=== PATIENT | male | born 2000 | race African-American/Black ===

== ENCOUNTER 2018-10-30 18:45 | Emergency (ER) | payer SELFPAY ==
[~2018-10-30] VITALS: Ht 165.1 cm; Wt 76.2 kg
[2018-10-30 19:44] VITALS: BP 135/69
[2018-10-30] MEDS ORDERED: KETOROLAC 30 MG/ML VIAL. IM ONE (20:45)
--- NOTE | 2018-10-30 21:03 | RAD ---
EXAM: Right hand, 3 views. HISTORY: Pain. COMPARISON: None. FINDINGS: 3 views the right hand are obtained. There is no fracture, dislocation or subluxation. IMPRESSION: No acute osseous finding. Electronically signed by: Mae Agustin MD (10/30/2018 9:00 PM) [facility]
--- NOTE | 2018-10-30 21:07 | PHYS DOC ---
Past Medical History Past Medical History: Asthma Additional Past Medical Histor: RIGHT ANKLE FX x 2 Past Surgical History: Other Additional Past Surgical Histo: ADENIODECTOMY Additional Information: non smoker Alcohol Use: None Drug Use: None Adult General Chief Complaint Chief Complaint: WRIST PAIN HPI HPI She is a 17-year-old male who presents the ER with right thumb pain that has been ongoing for a month. He has tried wrapping it and icing it which has some success. As also tried ibuprofen with varying success. He states it hurts the most when he wakes up. Severity of the pain is not out of 10 described as stabbing and sharp. He denies any associated symptoms. Review of Systems Review of Systems Constitutional: Denies fever or chills [] Eyes: Denies change in visual acuity, redness, or eye pain [] HENT: Denies nasal congestion or sore throat [] Respiratory: Denies cough or shortness of breath [] Cardiovascular: No additional information not addressed in HPI [] GI: Denies abdominal pain, nausea, vomiting, bloody stools or diarrhea [] : Denies dysuria or hematuria [] Musculoskeletal: Denies back pain. Report R thumb pain. Integument: Denies rash or skin lesions [] Neurologic: Denies headache, focal weakness or sensory changes [] Endocrine: Denies polyuria or polydipsia [] Complete systems were reviewed and found to be within normal limits, except as documented in this note. Current Medications Current Medications Current Medications Medications (Trade) Dose Ordered Sig/[facility] Start Time Stop Time Status Last Admin Dose Admin Ketorolac Tromethamine (Toradol 30mg Vial) 30 mg 1X ONCE 10/30/18 20:45 10/30/18 20:46 DC 10/30/18 20:45 30 MG Allergies Allergies Allergies Coded Allergies Type Severity Reaction Last Updated Verified prednisone Allergy Intermediate "hives" 05/25/16 Yes Physical Exam Physical Exam Constitutional: Well developed, well nourished, no acute distress, non-toxic appearance. [] HENT: Normocephalic, atraumatic, bilateral external ears normal, oropharynx moist, no oral exudates, nose normal. [] Eyes: PERRLA, EOMI, conjunctiva normal, no discharge. [] Neck: Normal range of motion, no tenderness, supple, no stridor. [] Cardiovascular:Heart rate regular rhythm, no murmur [] Lungs & Thorax: Bilateral breath sounds clear to auscultation [] Abdomen: Bowel sounds normal, soft, no tenderness, no masses, no pulsatile masses. [] Skin: Warm, dry, no erythema, no rash. [] Back: No tenderness, no CVA tenderness. [] Extremities: No tenderness, no cyanosis, no clubbing, ROM reduced with the R thumb, no edema. [] Neurologic: Alert and oriented X 3, normal motor function, normal sensory function, no focal deficits noted. [] Psychologic: Affect normal, judgement normal, mood normal. [] Current Patient Data Vital Signs Vital Signs Date Time Temp Pulse Resp B/P (MAP) Pulse Ox O2 Delivery O2 Flow Rate FiO2 10/30/18 19:44 99.0 65 16 135/69 (91) 99 Room Air 99.0 EKG EKG [] Radiology/Procedures Radiology/Procedures [] Course & Med Decision Making Course & Med Decision Making Pertinent Labs and Imaging studies reviewed. (See chart for details) Discussed signs and symptoms with patient. Will order x-ray and pain medication. Patient is agreeable. X-ray is negative. Will discharge patient home to follow up with ortho. Patient is agreeable. Dragon Disclaimer Dragon Disclaimer This electronic medical record was generated, in whole or in part, using a voice recognition dictation system. Departure Departure Impression: Primary Impression: Thumb injury Disposition: 01 HOME, SELF-CARE Condition: STABLE Referrals: NO PCP (PCP) COY DOUGLAS II, MD Additional Instructions: Follow up with orthopedics for further workup if pain continues. Take ibuprofen per label instructions. Problem Qualifiers Primary Impression: Thumb injury Encounter type: initial encounter Laterality: right Qualified Codes: S69.91XA - Unspecified injury of right wrist, hand and finger(s), initial encounter GETLYNNETTE CHOE October 30, 2018 21:07
== END 2018-10-30 21:37 | disposition home or self-care (01) ==
LOC: ER 18:45
DX: S69.81XA Other specified injuries of right wrist, hand and finger(s), initial encounter (principal); J45.909 Unspecified asthma, uncomplicated; Z90.89 Acquired absence of other organs; Z88.8 Allergy status to other drugs, medicaments and biological substances; X58.XXXA Exposure to other specified factors, initial encounter; Y93.89 Activity, other specified; Y92.89 Other specified places as the place of occurrence of the external cause; Y99.8 Other external cause status
CPT/HCPCS: 73130; 96372; 99284; J1885